=== PATIENT | female | born 1975 | race Caucasian/White ===

== ENCOUNTER 2018-11-24 09:06 | Emergency (ER) | payer OTHER ==
[~2018-11-24] VITALS: Ht 157.4 cm; Wt 69.6 kg
[~2018-11-24 09:06] MED LIST: GENT3.5O18 OD
[2018-11-24] MEDS ORDERED: LACTATED RINGERS 1,000 ML IV ONE (09:39)
[2018-11-24] MEDS ORDERED: KETOROLAC 30 MG/ML VIAL IVP ONE (09:45)
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
[2018-11-24 10:00] LABS: BILIRUBIN,URINE NEGATIVE (NEGATIVE); CLARITY,URINE CLEAR; COLOR,URINE YELLOW; GLUCOSE, URINE (UA) NEGATIVE (NEGATIVE); KETONES,URINE NEGATIVE (NEGATIVE); LEUKOCYTE ESTERASE ,URINE 2+ (NEGATIVE); NITRITE,URINE NEGATIVE (NEGATIVE); PH,URINE 5 (5-9); PROTEIN,URINE 2+ (NEGATIVE); UROBILINOGEN,URINE NORMAL (NORMAL)
[2018-11-24] MEDS ORDERED: HOLD METFORMIN - RECEIVED CONTRAST 20 ML VIAL IV SCH (10:00)
[2018-11-24] MEDS ORDERED: IOHEXOL 350 MG/ML 100 ML (OMNIPAQUE 350) VIAL IV ONE (10:00)
[2018-11-24] MEDS ORDERED: NS 100 ML (IVPB) BAG IV ONE (10:00)
[2018-11-24 10:13] LABS: AMPHETAMINE SCREEN, URINE NEGATIVE (NEGATIVE); BARBITURATE SCREEN URINE NEGATIVE (NEGATIVE); BENZODIAZEPINES SCREEN URINE NEGATIVE (NEGATIVE); CANNABINOID SCREEN, URINE POSITIVE (NEGATIVE); COCAINE SCREEN URINE NEGATIVE (NEGATIVE); METHADONE STAT NEGATIVE (NEGATIVE); METHAMPHETAMINE SCREEN URINE S NEGATIVE (NEGATIVE); OPIATE SCREEN URINE NEGATIVE (NEGATIVE); OXYCODONE STAT NEGATIVE (NEGATIVE); PROPOXYPHENE STAT NEGATIVE (NEGATIVE); TRICYCLIC ANTIDEPRESSANTS SCRE NEGATIVE (NEGATIVE)
--- NOTE | 2018-11-24 10:18 | NUR ---
Unable to establish IV access on pt. Pt does not want any further attempts. One attempt made. Dr. Valentin notified.
[2018-11-24 10:20] LABS: BACTERIA,URINE MODERATE /HPF; CALCIUM OXALATE CRYSTALS,UR FEW /LPF
[2018-11-24] MEDS ORDERED: KETOROLAC 30 MG/ML VIAL IM ONE (10:30)
--- NOTE | 2018-11-24 10:30 | NUR ---
Pt declined toradol and stated, "I will just tough it out."
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
[2018-11-24] MEDS ORDERED: ACHD5005 PO (11:52)
[2018-11-24 12:00] VITALS: BP 158/108
== END 2018-11-24 12:00 | disposition home or self-care (01) ==
LOC: EDUNIT# 09:06 → ER 09:08
DX: S22.42XA Multiple fractures of ribs, left side, initial encounter for closed fracture (principal); S32.018A Other fracture of first lumbar vertebra, initial encounter for closed fracture; S32.028A Other fracture of second lumbar vertebra, initial encounter for closed fracture; R40.2142 Coma scale, eyes open, spontaneous, at arrival to emergency department; R40.2252 Coma scale, best verbal response, oriented, at arrival to emergency department; R40.2362 Coma scale, best motor response, obeys commands, at arrival to emergency department; F17.210 Nicotine dependence, cigarettes, uncomplicated; Z98.51 Tubal ligation status; V49.49XA Driver injured in collision with other motor vehicles in traffic accident, initial encounter
CPT/HCPCS: 71250; 74176; 80306; 81000; 84703; 87077; 87088; 87186

== ENCOUNTER → 2022-07-29 | Emergency (ER) | payer SELFPAY ==
[~2022-07-29] MED LIST changes: +ACHD5005 PO
== END ==
LOC: EDUNIT# 18:31 → ER 18:33
DX: M54.2 Cervicalgia (principal)